=== PATIENT | male | born 2000 | race Caucasian/White ===

== ENCOUNTER 2019-04-16 02:59 | Emergency (ER) | payer OTHER ==
--- NOTE | 2019-04-16 03:23 | ED ---
Palpitations / Dysrhythmia - HPI Summary HPI Summary: This patient is a 18 year old male presenting to [facility] with a chief complaint of palpitations. He states his heart will race, then slow down suddenly and then return to normal and then race again. He reports SOB. He denies nausea, vomiting, and skin diaphoresis. - History of Current Complaint Chief Complaint: EDChestPainROMI Hx Obtained From: Patient Onset/Duration: Lasting Hours Associated Signs & Symptoms: Shortness of Breath - Allergy/Home Medications Allergies/Adverse Reactions: Allergies Allergy/AdvReac Type Severity Reaction Status Date / Time No Known Allergies Allergy Verified 04/16/19 03:16 Home Medications: Home Medications NK [No Home Medications Reported] 04/16/19 [History Confirmed 04/16/19] PMH/Surg Hx/FS Hx/Imm Hx Endocrine/Hematology History: Denies: Hx Diabetes Cardiovascular History: Denies: Hx Hypertension, Hx Pacemaker/ICD Sensory History: Denies: Hx Hearing Aid Psychiatric History: Denies: Hx Panic Disorder - Surgical History Surgery Procedure, Year, and Place: tonsillectomy ~10 years ago Infectious Disease History: No Infectious Disease History: Denies: Traveled Outside the [place] in Last 30 Days - Family History Known Family History: Negative: Cardiac Disease - Social History Alcohol Use: None Hx Substance Use: No Substance Use Type: Reports: None Hx Tobacco Use: No Smoking Status (MU): Never Smoked Tobacco Review of Systems Negative: Skin Diaphoresis Positive: Palpitations Positive: Shortness Of Breath Negative: Vomiting, Nausea All Other Systems Reviewed And Are Negative: Yes Physical Exam - Summary Physical Exam Summary: Appearance: Well-appearing, Well-nourished, lying in bed comfortably Skin: Warm, dry, no obvious rash Eyes: sclera anicteric, no conjunctival pallor ENT: mucous membranes moist, pharynx appears normal Neck: Supple, nontender Respiratory: Clear to auscultation, no signs of respiratory distress Cardiovascular: Normal S1, S2. No murmurs. Normal distal pulses in tibial and radial bilaterally. Abdomen: Soft, nontender, normal active bowel sounds present Musculoskeletal: Normal, Strength/ROM Intact Neurological: A&Ox3, awake and alert, mentation is normal, speech is fluent and appropriate Psychiatric: affect is normal, does not appear anxious or depressed Triage Information Reviewed: Yes Vital Signs On Initial Exam: Initial Vitals Temp Pulse Resp BP Pulse Ox 97.7 F 64 18 146/83 100 04/16/19 03:14 04/16/19 03:14 04/16/19 03:14 04/16/19 03:14 04/16/19 03:14 Vital Signs Reviewed: Yes Procedures - Sedation Patient Received Moderate/Deep Sedation with Procedure: No Diagnostics - Vital Signs Vital Signs Temp Pulse Resp BP Pulse Ox 04/16/19 03:14 97.7 F 64 18 146/83 100 - Laboratory Result Diagrams: 04/16/19 03:52 04/16/19 03:52 Lab Statement: Any lab studies that have been ordered have been reviewed, and results considered in the medical decision making process. - EKG 0300 Cardiac Rate: NL - 61 BPM EKG Rhythm: Sinus Rhythm Ectopy: PACs Summary of EKG Findings: No STEMI. ED Physician has reviewed and interpreted this report. Course/Dx - Course Course Of Treatment: This patient is a 18 year old male presenting to [facility] with a chief complaint of palpitations. EKG was remarkable for PACs. CXR was unremarkable. A plan for discharge was discussed with the patient and he was agreeable with this plan. - Diagnoses Provider Diagnoses: PVCs (premature ventricular contractions) Discharge ED - Sign-Out/Discharge Documenting (check all that apply): Patient Departure - Discharge - Discharge Plan Condition: Stable Disposition: HOME Patient Education Materials: Heart Palpitations (ED) Referrals: Gregg Boland DO [Medical Doctor] - Additional Instructions: The palpitations you are feeling tonight are benign and can be caused by a number of different conditions. I would recommend making an appointment with a server developer for further evaluation. - Billing Disposition and Condition Condition: STABLE Disposition: Home - Attestation Statements Document Initiated by Kay: Yes Documenting Scribe: Jorge Johnston Provider For Whom Kay is Documenting (Include Credential): Frank Tanner MD Scribe Attestation: I, Jorge Johnston, scribed for Frank Tanner MD on 04/20/19 at 1809. Scribe Documentation Reviewed: Yes Provider Attestation: The documentation as recorded by the Jorge calero accurately reflects the service I personally performed and the decisions made by me, Frank Tanner MD Status of Scribe Document: Viewed
[2019-04-16 04:01] LABS: ABS Basophils 0.1 10^3/ul (0-0.2); ABS Eosinophils 0.1 10^3/ul (0-0.6); ABS Lymphocytes 2.6 10^3/ul (1.0-4.8); ABS Monocytes 0.7 10^3/ul (0-0.8); ABS Neutrophils 4.4 10^3/ul (1.5-7.7); Eosinophil % 1.8 %; Hematocrit 42 % (42-52); Hemoglobin 14.8 g/dL (14.0-18.0); Lymphocyte % 32.3 %; Mean Corpuscular HGB Conc 35 g/dL (31-36); Mean Corpuscular Hemoglobin 31 pg (27-31); Mean Corpuscular Volume 89 fL (80-94); Mean Platelet Volume 8.3 fL (7.4-10.4); Nucleated Red Blood Cells % 0.1; Platelet Count 249 10^3/uL (150-450); Red Blood Count 4.76 10^6 /uL (4.18-5.48); Red Cell Distribution Width 13 % (10-15)
[2019-04-16 04:06] LABS: INR 1.21 (0.82-1.09)
[2019-04-16 04:17] LABS: Albumin/Globulin Ratio 2.2 (1-3); EGFR African American 115.3 (>60); EGFR Non-African American 95.3 (>60); Globulin 2.3 g/dL (2-4); Total Bilirubin 0.6 mg/dL (0.2-1.0); Total Protein 7.3 g/dL (6.4-8.9)
[2019-04-16 05:14] VITALS: BP 128/78
== END 2019-04-16 04:58 | disposition home or self-care (01) ==
LOC: ED 02:59
DX: I49.1 Atrial premature depolarization (principal)
CPT/HCPCS: 36415; 71046; 80053; 84484; 85025; 85610; 93005; 99283